=== PATIENT | male | born 1975 | race Caucasian/White ===

== ENCOUNTER 2022-04-09 03:56 | Day surgery (SDC) | payer OTHER ==
[2022-04-05 16:17] VITALS: BMI 31.7
[2022-04-09] MEDS ORDERED: MIDAZOLAM HCL 2 MG/2 ML SINGLE DOSE VIAL ONE (14:36)
[2022-04-09] MEDS ORDERED: PROPOFOL 20 ML ONE (15:25)
[2022-04-09 18:17] VITALS: RESP 16; TEMP 98.6
[2022-04-09 18:22] VITALS: BP 120/80; PULSE 80
== END 2022-04-09 16:45 | disposition home or self-care (01) ==
LOC: JASU-SURG 03:56
PROVIDERS: ATTEND Urology
PROC: 0TF4XZZ Fragmentation in Left Kidney Pelvis, External Approach (ICD-10-PCS; principal; 2022-04-09 14:00)
DX: N20.0 Calculus of kidney (principal)